=== PATIENT | male | born 1965 | race Two or more races ===

== ENCOUNTER 2023-09-10 08:15 | Inpatient (IN) | payer OTHER ==
[~2023-09-10] VITALS: Ht 157.5 cm; Wt 69.9 kg
[2023-09-10 10:19] LABS: PH,URINE 6.5 (5.0-8.0); URINE APPEARANCE Clear; URINE BILIRRUBIN Negative (NEGATIVE); URINE BLOOD Negative; URINE COLOR Yellow; URINE GLUCOSE Negative (NEGATIVE); URINE LEUKOCYTE Negative; URINE NITRATE Negative; URINE PROTEIN Negative (NEGATIVE); URINE UROBILINOGEN 0.2 E.U./dl
[2023-09-10 10:26] LABS: HEMATOCRIT 45.4 % (39.0-48.0); HEMOGLOBIN 16.1 g/dL (13-16.00); MEAN CORPUSCULAR HEMOGLOBIN 30.2 pg (27.00-32.0); MEAN CORPUSCULAR HGB CONC 35.5 g/dl (32.0-36.0); PLATELET COUNT 146 K/uL (150-450); RED BLOOD COUNT 5.34 M/uL (4.00-6.00); RED CELL DISTRIBUTION WIDTH 13.5 % (11.5-14.5)
[2023-09-10 10:33] LABS: URINE BACTERIA 0 uL (0.0-1933); URINE EPITHELIAL CELLS 0.1 uL (0.0-38.8); URINE RBC 0.9 uL (0.0-20.8); URINE WBC 0.3 uL (0.0-23.2)
[2023-09-10] MEDS ORDERED: FLUCONAZOLE200 MG (10:35)
[2023-09-10] MEDS ORDERED: IBERSARTAN (10:36)
[2023-09-10 10:44] LABS: INR 0.99; PARTIAL THROMBOPLASTIN TIME 30.1 SECONDS (22.0-34.0); PROTHROMBIN TIME 10.4 SECONDS (9.0-11.5)
[2023-09-10 10:50] LABS: ALBUMIN 4.3 gm/dL (3.4-5.0); BILIRUBIN TOTAL 1.23 mg/dL (0.3-1.2); CALCIUM 9.7 mg/dL (8.5-10.1); CREATININE SERUM 1.04 mg/dL (0.70-1.30); GFR 72.85; GLOBULINA 3.7 G/DL (2.4-3.5); POTASSIUM 3.93 mEq/L (3.5-5.1)
[2023-09-17] MEDS ORDERED: TRANEXAMIC ACID 100MG/1ML (1000MG) AMPUL IV ONE ×2 (10:00)
[2023-09-17] MEDS ORDERED: CEFAZOLIN SODIUM 1,000 MG VIAL IV ONE (10:00)
[2023-09-17] MEDS ORDERED: MORPHINE SULFATE 4 MG/ML CARTRIDGE IV PRN (11:15)
[2023-09-17] MEDS ORDERED: ONDANSETRON HCL 2 MG/ML VIAL IV PRN (11:15)
[2023-09-17] MEDS ORDERED: SODIUM CHLORIDE 0.45 % 1,000 ML IV SCH (11:15)
[2023-09-17] MEDS ORDERED: OxyCODONE HCL 5 MG TABLET (ROXICODONE) PO PRN (11:15)
[2023-09-17] MEDS ORDERED: ACETAMINOPHEN 500 MG GEL..CAP PO SCH (12:00)
[2023-09-17] MEDS ORDERED: ENALAPRILAT DIHYDRATE 1.25 MG/ML VIAL IV PRN (15:00)
[2023-09-17] MEDS ORDERED: CEFAZOLIN SODIUM 1,000 MG VIAL IV SCH (17:00)
[2023-09-17] MEDS ORDERED: GABAPENTIN 300 MG CAPSULE PO SCH (17:00)
[2023-09-18 06:03] LABS: HEMATOCRIT 38.5 % (39.0-48.0); HEMOGLOBIN 13.7 g/dL (13-16.00); MEAN CELL VOLUME 83.2 fL (80.0-100.00); MEAN CORPUSCULAR HEMOGLOBIN 29.7 pg (27.00-32.0); MEAN CORPUSCULAR HGB CONC 35.7 g/dl (32.0-36.0); RED BLOOD COUNT 4.63 M/uL (4.00-6.00); RED CELL DISTRIBUTION WIDTH 13.4 % (11.5-14.5)
[2023-09-18 06:26] LABS: PLATELET COUNT 105 K/uL (150-450)
[2023-09-18] MEDS ORDERED: CEFADROXIL500 MG PO (08:19)
[2023-09-18] MEDS ORDERED: PERCOCET 5-3251 EACH PO (08:19)
[2023-09-18] MEDS ORDERED: ELIQUIS2.5 MG PO (08:19)
[2023-09-18] MEDS ORDERED: IRBESARTAN 300 MG TABLET PO SCH (09:00)
[2023-09-18] MEDS ORDERED: SENNOSIDES 1 TAB TABLET PO SCH (09:00)
[2023-09-18] MEDS ORDERED: APIXABAN 2.5 MG TABLET PO SCH (09:00)
[2023-09-18] MEDS ORDERED: Cyanocobalamin/Mecobalamin 1 TAB.SL SL SCH (17:00)
[2023-09-18] MEDS ORDERED: VITAMIN B COMPLEX 1 EACH PO SCH (17:00)
[2023-09-19 07:20] LABS: HEMATOCRIT 38.7 % (39.0-48.0); HEMOGLOBIN 13.7 g/dL (13-16.00); MEAN CELL VOLUME 82.9 fL (80.0-100.00); MEAN CORPUSCULAR HEMOGLOBIN 29.3 pg (27.00-32.0); MEAN CORPUSCULAR HGB CONC 35.4 g/dl (32.0-36.0); RED BLOOD COUNT 4.66 M/uL (4.00-6.00); RED CELL DISTRIBUTION WIDTH 13.7 % (11.5-14.5)
[2023-09-19 07:36] LABS: PLATELET COUNT 76 K/uL (150-450)
[2023-09-19] MEDS ORDERED: IRON FUM,PS/FOLIC ACID/VITC/B3 1 CAP CAPSULE PO SCH (09:00)
== END 2023-09-19 20:05 | DRG 470 ==
LOC: O/R 09-17 06:07 → SURH 09-17 07:00 → SURG 09-17 10:27
PROVIDERS: ADMIT Orthopaedic Surgery; ATTEND Orthopaedic Surgery
PROC: 0SR90JZ Replacement of Right Hip Joint with Synthetic Substitute, Open Approach (ICD-10-PCS; principal; 2023-09-17 07:00)
DX: M16.11 Unilateral primary osteoarthritis, right hip (principal); D62 Acute posthemorrhagic anemia; I10 Essential (primary) hypertension; M25.751 Osteophyte, right hip

== ENCOUNTER 2024-04-27 07:30 | Inpatient (IN) | payer OTHER ==
[~2024-04-27] VITALS: Ht 157.5 cm; Wt 77.1 kg
[~2024-04-27 07:30] MED LIST: CEFADROXIL500 MG PO; ELIQUIS2.5 MG PO; FLUCONAZOLE200 MG; IBERSARTAN; PERCOCET 5-3251 EACH PO
[2024-04-27 09:30] VITALS: BP 150/81
[2024-04-27 09:32] LABS: URINE APPEARANCE Clear; URINE BILIRRUBIN Negative (NEGATIVE); URINE BLOOD Negative; URINE COLOR Yellow; URINE GLUCOSE Negative (NEGATIVE); URINE KETONE Negative (NEGATIVE); URINE LEUKOCYTE Negative; URINE NITRATE Negative; URINE PROTEIN Negative (NEGATIVE); URINE UROBILINOGEN 0.2 E.U./dl
[2024-04-27] MEDS ORDERED: TAMS0.4C PO (09:32)
[2024-04-27 09:40] LABS: HEMATOCRIT 44.7 % (39.0-48.0); HEMOGLOBIN 15.3 g/dL (13-16.00); MEAN CELL VOLUME 83.9 fL (80.0-100.00); MEAN CORPUSCULAR HEMOGLOBIN 28.7 pg (27.00-32.0); MEAN CORPUSCULAR HGB CONC 34.2 g/dl (32.0-36.0); PLATELET COUNT 120 K/uL (150-450); RED BLOOD COUNT 5.33 M/uL (4.00-6.00)
[2024-04-27 10:00] LABS: INR 0.98; PARTIAL THROMBOPLASTIN TIME 28.2 SECONDS (22.0-34.0); PROTHROMBIN TIME 10.7 SECONDS (9.0-11.5)
[2024-04-27 10:18] LABS: URINE BACTERIA 1.2 uL (0.0-1933); URINE EPITHELIAL CELLS 0.3 uL (0.0-38.8); URINE RBC 0.1 uL (0.0-20.8); URINE WBC 0 uL (0.0-23.2)
[2024-04-27 10:30] LABS: ALBUMIN 4.1 gm/dL (3.4-5.0); BILIRUBIN TOTAL 1.83 mg/dL (0.3-1.2); CALCIUM 9.7 mg/dL (8.5-10.1); CHOL HDL RATIO 3.1 (0-5.0); CREATININE SERUM 1.03 mg/dL (0.70-1.30); GFR 73.66; GLOBULINA 3.4 G/DL (2.4-3.5); POTASSIUM 4.05 mEq/L (3.5-5.1); TOTAL PROTEIN 7.5 gm/dL (6.4-8.2)
[2024-05-05] MEDS ORDERED: TRANEXAMIC ACID 100MG/1ML (1000MG) AMPUL IV ONE (11:44)
[2024-05-05] MEDS ORDERED: CEFAZOLIN SODIUM 1,000 MG VIAL ONE ×2 (11:44→17:14)
[2024-05-05] MEDS ORDERED: POVIDONE-IODINE 118 ML BOTT TOP ONE (11:44)
[2024-05-05] MEDS ORDERED: SODIUM CHLORIDE 0.45 % 1,000 ML IV SCH (15:45)
[2024-05-05] MEDS ORDERED: ONDANSETRON HCL 2 MG/ML VIAL IV PRN (15:45)
[2024-05-05] MEDS ORDERED: MORPHINE SULFATE 4 MG/ML CARTRIDGE IV PRN (15:45)
[2024-05-05] MEDS ORDERED: OxyCODONE HCL 5 MG TABLET (ROXICODONE) PO PRN (15:45)
[2024-05-05] MEDS ORDERED: MORPHINE SULFATE 4 MG/ML VIAL IV ONE ×2 (16:25→16:55)
[2024-05-05] MEDS ORDERED: GABAPENTIN 300 MG CAPSULE PO SCH (17:00)
[2024-05-05] MEDS ORDERED: CEFAZOLIN SODIUM 1,000 MG VIAL IV SCH (17:00)
[2024-05-05] MEDS ORDERED: ACETAMINOPHEN 500 MG GEL..CAP PO SCH (18:00)
[2024-05-06 01:00] VITALS: BP 152/78
[2024-05-06 06:37] LABS: HEMATOCRIT 33.9 % (39.0-48.0); HEMOGLOBIN 11.9 g/dL (13-16.00); MEAN CORPUSCULAR HEMOGLOBIN 28.8 pg (27.00-32.0); MEAN CORPUSCULAR HGB CONC 35.1 g/dl (32.0-36.0); RED BLOOD COUNT 4.14 M/uL (4.00-6.00); RED CELL DISTRIBUTION WIDTH 13.3 % (11.5-14.5)
[2024-05-06 07:07] LABS: PLATELET COUNT 83 K/uL (150-450)
[2024-05-06 08:18] VITALS: BP 109/61
[2024-05-06] MEDS ORDERED: PERCOCET 5-3251 EACH PO (08:45)
[2024-05-06] MEDS ORDERED: DUI500 PO (08:45)
[2024-05-06] MEDS ORDERED: ELIQUIS2.5 MG PO (08:45)
[2024-05-06] MEDS ORDERED: APIXABAN 2.5 MG TABLET PO SCH (09:00)
[2024-05-06] MEDS ORDERED: SENNOSIDES 1 TAB TABLET PO SCH (09:00)
[2024-05-06 17:18] VITALS: BP 152/80; O2SAT 96
[2024-05-07 02:33] VITALS: BP 141/63
[2024-05-07 07:04] LABS: HEMOGLOBIN 12.8 g/dL (13-16.00); MEAN CELL VOLUME 81.7 fL (80.0-100.00); MEAN CORPUSCULAR HEMOGLOBIN 29.7 pg (27.00-32.0); MEAN CORPUSCULAR HGB CONC 36.4 g/dl (32.0-36.0); RED BLOOD COUNT 4.29 M/uL (4.00-6.00)
[2024-05-07 07:17] LABS: PLATELET COUNT 72 K/uL (150-450)
[2024-05-07] MEDS ORDERED: IRON FUM,PS/FOLIC ACID/VITC/B3 1 CAP CAPSULE PO SCH (09:00)
[2024-05-07 09:16] VITALS: BP 140/85
[2024-05-07 17:39] VITALS: BP 111/60; BP 170/76
[2024-05-08 02:35] VITALS: BP 140/59
[2024-05-08 09:40] VITALS: BP 120/67; O2SAT 98
== END 2024-05-08 19:03 | disposition home or self-care (01) | DRG 470 ==
LOC: O/R 05-05 06:13 → SURG 05-05 07:00 → MEDJ 05-05 19:31
PROVIDERS: ADMIT Orthopaedic Surgery; ATTEND Orthopaedic Surgery
PROC: 0MBM0ZZ Excision of Left Hip Bursa and Ligament, Open Approach (ICD-10-PCS; 2024-05-05)
PROC: 0SRB0JZ Replacement of Left Hip Joint with Synthetic Substitute, Open Approach (ICD-10-PCS; principal; 2024-05-05 07:00)
DX: M16.12 Unilateral primary osteoarthritis, left hip (principal); M25.652 Stiffness of left hip, not elsewhere classified; M70.62 Trochanteric bursitis, left hip